=== PATIENT | male | born 1955 | race Caucasian/White ===

== ENCOUNTER 2017-01-21 12:17 | Inpatient (IN) | payer MEDICARE, OTHER ==
[~2017-01-21] VITALS: Ht 170.2 cm; Wt 80.3 kg
--- NOTE | 2017-01-21 12:28 | NUR ---
robi from [facility] due to generalized weakness and failure to thrive. Patient is awake, however patient is non verbal and is unable to follow commands. No sob, no evidence of pain or discomfort. Skin is warm to touch and non diaphoretic. Pt is afebrile. Vss.Gowned pt and placed on tele monitor., Pending md reis
[2017-01-21] MEDS ORDERED: IV NS 0.9% 1,000 ML BAG IV ONE (12:30)
[2017-01-21] MEDS ORDERED: IV SET PRIMARY 1 EA INFUS.SET MC ONE (12:36)
[2017-01-21] MEDS ORDERED: IV NS 0.9% 1,000 ML ONE (12:36)
[2017-01-21 12:44] LABS: BASOPHILS # (AUTO) 0.1 /CMM (0.0-0.2); BASOPHILS % (AUTO) 0.8 % (0.0-2.0); EOSINOPHILS # (AUTO) 3.1 /CMM (0.0-0.7); HEMATOCRIT 41 % (39-51); HEMOGLOBIN 13.6 g/dL (13.5-17.5); LYMPHOCYTES # (AUTO) 2.5 /CMM (0.8-4.8); LYMPHOCYTES % (AUTO) 21.8 % (20.0-44.0); MEAN CORPUSCULAR HEMOGLOBIN 30 PG (26.0-33.0); MEAN CORPUSCULAR HGB CONC 33 g/dl (31.0-36.0); MEAN CORPUSCULAR VOLUME 91 fL (80-96); MONOCYTES # (AUTO) 0.9 /CMM (0.1-1.30); NEUTROPHILS # (AUTO) 4.9 /CMM (1.8-8.9); NEUTROPHILS % (AUTO) 42.8 % (43.0-81.0); PLATELET COUNT (AUTO) 247 /CMM (150-450); RDW COEFFICIENT OF VARIATION 12.7 (11.5-15.0); RED BLOOD CELL COUNT(AUTO) 4.49 MIL/uL (4.5-6.0); WHITE BLOOD COUNT (AUTO) 11.5 K/uL (4.3-11.0)
--- NOTE | 2017-01-21 12:46 | NUR ---
[employer] at bs
[2017-01-21 12:49] LABS: EOSINOPHILS % (AUTO) 26.6 % (0.0-6.0)
[2017-01-21 12:59] LABS: INR 1.05 (0.87-1.13); PROTHROMBIN TIME 10.9 SECS (9.5-12.7)
[2017-01-21 13:01] LABS: ALANINE AMINOTRANSFERASE 9 U/L (12-78); ALBUMIN 2.7 g/dL (3.4-5.0); ALKALINE PHOSPHATASE 118 U/L (46-116); ASPARTATE AMINOTRANSFERASE 14 U/L (15-37); BILIRUBIN,DIRECT 0.1 mg/dL (0.0-0.2); BILIRUBIN,TOTAL 0.4 mg/dL (0.2-1.0); CALCIUM, SERUM 8.8 mg/dL (8.5-10.1); CARBON DIOXIDE 30 mmol/L (21-32); CHLORIDE 107 mmol/L (98-107); CREATININE 0.9 mg/dL (0.6-1.3); GLUCOSE 103 mg/dL (74-106); SODIUM SERUM 141 mmol/L (136-145); TOTAL PROTEIN, SERUM 7.6 g/dL (6.4-8.2)
[2017-01-21 13:02] LABS: SALICYLATE 1.1 mg/dL (2.8-20.0)
[2017-01-21 13:04] LABS: TROPONIN I < 0.017 ng/mL (0.00-0.056)
[2017-01-21 13:07] LABS: UREA NITROGEN, BLOOD 9 mg/dL (7-18)
[2017-01-21] MEDS ORDERED: ADAL40PE SQ (13:08)
[2017-01-21] MEDS ORDERED: RANI150T8 PO (13:08)
[2017-01-21] MEDS ORDERED: TEMA30CA PO (13:08)
[2017-01-21] MEDS ORDERED: RISP2TAB5 PO (13:08)
[2017-01-21] MEDS ORDERED: HYDR-3026 PO (13:08)
[2017-01-21] MEDS ORDERED: ROPI0.5T PO (13:08)
[2017-01-21] MEDS ORDERED: CARV3.122 PO (13:08)
[2017-01-21] MEDS ORDERED: SERT25TA PO (13:08)
[2017-01-21] MEDS ORDERED: CODE118S2 PO (13:08)
[2017-01-21] MEDS ORDERED: DOCU-170 PO (13:08)
[2017-01-21] MEDS ORDERED: ASPI81TA2 PO (13:08)
[2017-01-21 13:28] LABS: THYROID STIMULATING HORMONE 2.054 uIU/mL (0.358-3.74)
[2017-01-21 13:40] LABS: SERUM AMMONIA 14 umol/L (11-32)
--- NOTE | 2017-01-21 13:41 | NUR ---
pt was taken to ct
--- NOTE | 2017-01-21 13:52 | NUR ---
pt told nurses to come back at @1400 for urine sample
[2017-01-21 14:06] LABS: BAND % (MANUAL) 3 % (0.0-5.0); EOSINOPHILS % (MANUAL) 27 % (0-4); LYMPHOCYTES % (MANUAL) 22 % (16-48); MONOCYTES % (MANUAL) 11 % (0-11.0); NEUTROPHILS % (MANUAL) 37 (42-76)
--- NOTE | 2017-01-21 14:12 | NUR ---
PAGED DR LEMON FOR CALL BACK
--- NOTE | 2017-01-21 14:38 | NUR ---
CALLED NURSING DRY KILN FEEDER FOR M/S BED
[2017-01-21 14:57] LABS: APPEARANCE,URINE Clear (CLEAR); BILIRUBIN,URINE Negative (NEGATIVE); BLOOD, URINE Moderate Ery/uL (NEGATIVE); COLOR,URINE Dark (YELLOW); KETONES,URINE Negative (NEGATIVE); LEUKOCYTE ESTERASE ,URINE Negative (NEGATIVE); NITRITE, URINE Negative (NEGATIVE); PROTEIN,URINE Negative (NEGATIVE); UGLUCOSE Negative (NEGATIVE)
[2017-01-21 15:06] LABS: BACTERIA,URINE None seen /HPF (None Seen); SQUAMOUS EPITHELIAL CELL,UR Rare /HPF (None Seen)
[2017-01-21 15:07] LABS: MUCUS,URINE Few /LPF (None Seen)
--- NOTE | 2017-01-21 16:51 | NUR ---
report given to floor nurse for continuity of care
--- NOTE | 2017-01-21 17:15 | NUR ---
pt trasnported to 3w. vss
[2017-01-21 17:30] VITALS: BP_SYST 119; BP_DIAS 73; BP_DIAS 80
--- NOTE | 2017-01-21 17:30 | NUR ---
RN MS NOTES RECEIVED PT FROM E.R. STAFF VIA [facility], ASSISTED TO BED, MADE COMFORTABLE, PT IS AWAKE, ALERT, NON VERBAL, COMMUNICATES THROUGH WRITING, NO COMPLAINT OF PAIN, NOT IN DISTRESS, ON ROOM AIR, VITALS WNL, ABLE TO AMBULATE WITH STEADY GAIT TO THE BATHROOM, ROOM SET UP ORIENTATION PROVIDED TO PT, EXPRESSED UNDERSTANDING, AWAITING ADMISSION ORDERS FROM MD.
--- NOTE | 2017-01-21 18:51 | NUR ---
RN MS NOTES PT IN BED, RESTING, NO COMPLAINT OF PAIN OR DISTRESS, SPOKE WITH JIN DREW DISTRICT MEDICAL EXAMINER, QUALITY SYSTEMS MANAGER FOR DR. LEMON, ADMITTING ORDERS RECEIVED, NOTED AND CARRIED OUT, KEPT PT COMFORTABLE, CALL LIGHT WITHIN REACH, PM CARE RENDERED.
--- NOTE | 2017-01-21 19:45 | NUR ---
MS ELIF INITIAL NOTES SEEN PT IN BED AWAKE AND ALERT , DEAF, COMMUNICATE DELORES WRITING. NO SIGNS OF ANY ACUTE DISTRESS NOTED. RE-ORIENTED WHERE HE AT AND HOW TO USED THE CALL LIGHT SYSTEM. SNACKS ALSO SERVED. DENIES ANY PAIN OR ANY DISCOMFORT. NOTED HE SOME RASHES ON HIS BODY . HE SCRATCHES IT ONCE IN A WHILE. KEPT HIM WARM AND COMFORTABLE AT ALL TIMES. PLACE CALL LIGHT AT REACH. WILL CONTINUE TO MONITOR. BED ALARM SET FOR SAFETY.PLACE CALL LIGHT AT REACH. WILL CONTINUE TO MONITOR.
[2017-01-21 20:00] VITALS: BP 115/67
[2017-01-21] MEDS ORDERED: TEMAZEPAM 15 MG CAPSULE PO PRN (20:30)
[2017-01-21] MEDS ORDERED: ADALIMUMAB SQ SCH (20:30)
[2017-01-21] MEDS ORDERED: hydrOXYzine PAMOATE 25 MG CAPSULE PO PRN (20:30)
[2017-01-21] MEDS: FAMOTIDINE (20 MG) 20 MG TABLET PO SCH (21:23)
[2017-01-21] MEDS: ropiniROLE 0.5 MG TABLET PO SCH (21:23)
[2017-01-21] MEDS: risperiDONE 1 MG TABLET PO SCH (21:24)
[2017-01-21] MEDS: CODEINE/PROMETHAZINE HCL 5 ML UDC PO PRN (21:28)
--- NOTE | 2017-01-21 22:00 | NUR ---
MS ELIF NOTES PHENERGAN 5ML GIVEN FOR PT TO RELIEVED ITCHY. ROUTINE MEDS ALSO ADMINISTERED. SNACKS ALSO SERVED. WILL CONTINUE TO MONITOR.
--- NOTE | 2017-01-22 | NUR ---
MS ELIF NOTES PT SLEEPING COMFORTABLY IN BED WITHOUT ANY ACUTE DISTRESS NOTED. KEPT HIM WARM AND COMFORTABLE AT ALL TIMES. WILL CONTINUE TO MONITOR. PLACE CALL LIGHT AT REACH.
[2017-01-22 06:15] LABS: BASOPHILS % (AUTO) 0.5 % (0.0-2.0); EOSINOPHILS # (AUTO) 1.7 /CMM (0.0-0.7); EOSINOPHILS % (AUTO) 18.9 % (0.0-6.0); HEMATOCRIT 39 % (39-51); HEMOGLOBIN 13.3 g/dL (13.5-17.5); LYMPHOCYTES # (AUTO) 2.1 /CMM (0.8-4.8); LYMPHOCYTES % (AUTO) 22.6 % (20.0-44.0); MEAN CORPUSCULAR HEMOGLOBIN 31 PG (26.0-33.0); MEAN CORPUSCULAR HGB CONC 34 g/dl (31.0-36.0); MEAN CORPUSCULAR VOLUME 92 fL (80-96); MONOCYTES # (AUTO) 0.6 /CMM (0.1-1.30); MONOCYTES % (AUTO) 6.6 % (2.0-12.0); NEUTROPHILS # (AUTO) 4.7 /CMM (1.8-8.9); NEUTROPHILS % (AUTO) 51.4 % (43.0-81.0); PLATELET COUNT (AUTO) 235 /CMM (150-450); RDW COEFFICIENT OF VARIATION 13.5 (11.5-15.0); RED BLOOD CELL COUNT(AUTO) 4.27 MIL/uL (4.5-6.0); WHITE BLOOD COUNT (AUTO) 9.2 K/uL (4.3-11.0)
[2017-01-22 06:30] LABS: CALCIUM, SERUM 8.4 mg/dL (8.5-10.1); CREATININE 0.7 mg/dL (0.6-1.3); POTASSIUM 3.7 mmol/L (3.5-5.1)
--- NOTE | 2017-01-22 07:05 | NUR ---
MS HOURLY SHIFT CLOSING NOTES PT REMAINS SLEEPING COMFORTABLY IN BED WITHOUT ANY ACUTE DISTRESS NOTED. SLEPT WELL AND STABLE DELORES THE NIGHT. ALL DUE MEDS GIVEN AND ALL NEEDS MET. KEPT HIM WARM AND COMFORTABLE AT ALL TIMES. PLACE CALL LIGHT AT REACH. WILL ENDORSE TO AM NURSE FOR CONTINUITY OF CARE.
--- NOTE | 2017-01-22 07:21 | NUR ---
MS RN OPENING NOTES PT RECEIVED AWAKE IN BED IN NO ACUTE SIGNS OF DISTRESS. ALERT , DEAF, COMMUNICATE DELORES WRITING. DENIES ANY PAIN OR DISCOMFORTS AT THIS TIME. IV ACCESS ON RAC INTACT AND PATENT. CALL LIGHT WITHIN REACH. BED ALARM IN PLACE. BED IN LOW POSITION AND LOCKED. SAFETY PRECAUTIONS MAINTAINED. WILL CONTINUE TO MONITOR ACCORDINGLY.
[2017-01-22 08:00] VITALS: BP 102/60
[2017-01-22] MEDS: FAMOTIDINE (20 MG) 20 MG TABLET PO SCH ×2 (08:22→22:06)
[2017-01-22] MEDS: risperiDONE 1 MG TABLET PO SCH ×2 (08:23→16:50)
[2017-01-22] MEDS: SERTRALINE HCL 25 MG TABLET PO SCH (08:23)
[2017-01-22] MEDS: ASPIRIN 81 MG TAB.CHEW PO SCH (08:24)
[2017-01-22] MEDS: CARVEDILOL 3.125 MG TABLET PO SCH ×2 (08:24→16:50)
[2017-01-22 08:28] LABS: EOSINOPHILS % (MANUAL) 9 % (0-4); LYMPHOCYTES % (MANUAL) 13 % (16-48); MONOCYTES % (MANUAL) 1 % (0-11.0); NEUTROPHILS % (MANUAL) 77 (42-76)
[2017-01-22] MEDS ORDERED: DOCUSATE SODIUM 100 MG CAPSULE PO SCH (09:00)
--- NOTE | 2017-01-22 11:51 | NUR ---
RN NOTES PATIENT WENT THIS MORNING FOR CT SCAN OF CHEST W/O CONTRAST TO RADIOLOGY VIA WHEELCHAIR. RESULTS STILL PENDING.
[2017-01-22 16:00] VITALS: BP 94/67
--- NOTE | 2017-01-22 18:14 | NUR ---
RN NOTES CALLED [facility] REGARDING PT'S HUMIRA INJ. SPOKE TO MARIN AND SAID THAT IT'S SUPPOSED TO BE GIVEN BY HOME HEALTH NURSE YESTERDAY BUT WASN'T GIVEN BECAUSE PT WAS TRANSFERRED TO HOSPITAL( HERE). MARIN CALLED HOME HEALTH CLINIC IF THEY CAN BRING THE HUMIRA HERE BUT THE CLINIC IS CLOSE ALREADY. MARIN WILL CALL HOME CLINIC TOMORROW MORNING AND WILL LET US KNOWN IF THEY CAN PROVIDE THE MEDICATION. ZAIDA OF PHARMACY INFORMED. WILL FOLLOW-UP TOMORROW.
--- NOTE | 2017-01-22 18:41 | NUR ---
MS RN CLOSING NOTES PT AWAKE AND RESTING @ MODERATE HIGH BACKREST IN BED. ALERT AND ORIENTED X1-2, DEAF, COMMUNICATE THROUGH WRITING AND GESTURES. DENIES ANY PAIN OR DISCOMFORTS THROUGHOUT THE DAY. ATE WELL DURING MEALTIMES. ALL NEEDS AND CARE PROVIDED WELL. IV ACCESS ON RAC INTACT AND PATENT. CALL LIGHT WITHIN REACH. BED ALARM IN PLACE. BED IN LOW POSITION AND LOCKED. SAFETY PRECAUTIONS MAINTAINED. ALL DUE MEDS GIVEN AND TOLERATED.WILL ENDORSED TO NURSE SUPERVISOR NURSE FOR STEVEN.
[2017-01-22 20:00] VITALS: BP 107/72
--- NOTE | 2017-01-22 20:00 | NUR ---
MS STORES ASSISTANT INITIAL NOTES RECEIVED PT IN BED RESTING WITH EYES CLOSED, NOT IN ANY ACUTE DISTRESS, RESPIRATION EVEN AND NON-LABORED, HEPLOCK PATENT AND INTACT. ABLE TO COMMUNICATE DELORES WRITING, DENIES ANY PAIN.RE-ORIENTED HIM WHERE HE AT AND HOW TO USED THE CALL LIGHT SYSTEM AND ENCOURAGE HIM TO USE IF HE NEEDS SOME HELP. KEPT HIM WARM AND COMFORTABLE AT ALL TIMES. PLACE CALL LIGHT AT REACH. WILL CONTINUE TO MONITOR.
[2017-01-22] MEDS: ATORVASTATIN 10 MG TABLET PO SCH (22:06)
[2017-01-22] MEDS: ropiniROLE 0.5 MG TABLET PO SCH (22:06)
[2017-01-22] MEDS: CODEINE/PROMETHAZINE HCL 5 ML UDC PO PRN (22:06)
--- NOTE | 2017-01-23 | NUR ---
MOUNTAIN GUIDE/NOTES PT SLEEPING COMFORTABLY IN BED WITHOUT ANY ACUTE DISTRESS NOTED. KEPT HIM WARM AND COMFORTABLE AT ALL TIMES. PLACE CALL LIGHT AT REACH.
--- NOTE | 2017-01-23 06:52 | NUR ---
CHILD DEVELOPMENT INSTRUCTOR CLOSING NOTES PT REMAINS SLEEPING AT THIS TIME BUT AROUSES TO TOUCH, NOT IN ANY DISCOMFORT. STABLE DELORES THE NIGHT AND SLEPT WELL. ALL DUE MEDS GIVEN AND ALL NEEDS MET. KEPT HIM WARM AND COMFORTABLE AT ALL TIMES. PLACE CALL LIGHT AT REACH. WILL ENDORSE TO AM NURSE FOR CONTINUITY OF CARE.
[2017-01-23 08:00] VITALS: BP 124/70
--- NOTE | 2017-01-23 08:00 | NUR ---
m/s traffic recorder: initial assessment received pt in bed awake, a/ox2-3; deaf, but able to make needs known by writing things. denies any pain and discomfort. reality orientation provided prn. instructed to call for assistance. pt able to ambulate without difficulty. will continue to monitor.
[2017-01-23] MEDS: ASPIRIN 81 MG TAB.CHEW PO SCH (08:37)
[2017-01-23] MEDS: risperiDONE 1 MG TABLET PO SCH ×2 (08:37→16:55)
[2017-01-23] MEDS: SERTRALINE HCL 25 MG TABLET PO SCH (08:37)
[2017-01-23] MEDS: FAMOTIDINE (20 MG) 20 MG TABLET PO SCH ×2 (08:38→21:00)
[2017-01-23] MEDS: CARVEDILOL 3.125 MG TABLET PO SCH ×2 (08:38→16:50)
--- NOTE | 2017-01-23 10:00 | NUR ---
m/s senior enlisted advisor: notes resting comfortable in bed with no distress noted. call light within reach. will monitor.
--- NOTE | 2017-01-23 13:30 | NUR ---
M/S HEALTHCARE EDUCATOR: MD VISIT SEEN AND EXAMINED BY DR. LEMON WITH ORDER TO D'C PT BACK TO [facility], CONTINUE HOME MEDS, AND NEED COLONOSCOPY OUTPATIENT. ORDER READ BACK AND CARRIED OUT AND ACKNOWLEDGED. CASE MANAGEMENT MADE AWARE.
--- NOTE | 2017-01-23 13:45 | NUR ---
m/s rn bsn: notes able to communicate with pt by writing and aware that he is going back to assisted living today and wrote it down including his room number there. asked by writing if we can take photos on his psoriasis, but said no in writing. pt has generalized psoriasis. will continue to monitor.
--- NOTE | 2017-01-23 15:10 | NUR ---
m/s landing man: notes f/u made to [place] (case management) and informed me that they are not taking ([facility]) the pt today, but will take him tomorrow for snf. pt made aware by writing it down and verbalized understanding.
[2017-01-23 16:00] VITALS: BP 102/59
--- NOTE | 2017-01-23 18:30 | NUR ---
m/s putty maker: notes resting comfortable in bed. needs attended. no apparent distress noted. instructed to call for assistance. will continue to monitor.
--- NOTE | 2017-01-23 19:10 | NUR ---
RN OPEN NOTES RECEIVED PATIENT AWAKE IN BED. A/O X2-3. PATIENT DEAF BUT ABLE TO COMMUNICATE THROUGH WRITING. NO SIGNS OF DISTRESS OR DISCOMFORT. BREATHING EVEN AND UNLABORED. IV ACCESS IN RAC, PATENT AND INTACT, NO SIGNS OF REDNESS OR INFILTRATION. BED IN LOW LOCKED POSITION WITH SIDE RAILS X2. CALL LIGHT WITHIN REACH. WILL CONTINUE TO MONITOR.
[2017-01-23 20:00] VITALS: BP 118/75
--- NOTE | 2017-01-23 21:40 | NUR ---
RN NOTES PATIENT REFUSED LIPITOR, REQUIP, AND PEPCID X3. PATIENT EDUCATION REINFORCED. WILL CONTINUE TO MONITOR.
[2017-01-23] MEDS: ropiniROLE 0.5 MG TABLET PO SCH (22:00)
[2017-01-23] MEDS: ATORVASTATIN 10 MG TABLET PO SCH (22:00)
--- NOTE | 2017-01-24 06:50 | NUR ---
RN CLOSING NOTES PATIENT RESTING IN BED. A/O X2-3. PATIENT DEAF BUT ABLE TO COMMUNICATE THROUGH WRITING. NO SIGNS OF DISTRESS OR DISCOMFORT. BREATHING EVEN AND UNLABORED. IV ACCESS IN RAC, PATENT AND INTACT, NO SIGNS OF REDNESS OR INFILTRATION. NO SIGNIFICANT CHANGES THROUGH THE NIGHT. ALL NEEDS MET. BED IN LOW LOCKED POSITION WITH SIDE RAILS X2. CALL LIGHT WITHIN REACH. WILL ENDORSE TO AM SHIFT FOR STEVEN.
--- NOTE | 2017-01-24 07:15 | NUR ---
RN INITIAL NOTES: REC'D PT AWAKE ON BED, NOT IN ANY DISTRESS. PT ON ROOM AIR, NO SOB NOTED. HAS R AC G20 SL, FLUSHED, PATENT & INTACT W/ NO SIGNS OF INFECTION/ INFILTRATION NOTED. PROVIDED COMFORT & SAFETY MEASURES. CALL LIGHT PLACED W/IN REACH. BED KEPT LOW & IN LOCKED POSITION. WILL CONTINUE TO MONITOR.
[2017-01-24 08:00] VITALS: BP 121/73
[2017-01-24] MEDS: ASPIRIN 81 MG TAB.CHEW PO SCH (08:26)
[2017-01-24] MEDS: risperiDONE 1 MG TABLET PO SCH (08:26)
[2017-01-24 08:27] VITALS: BP 121/73
[2017-01-24] MEDS: FAMOTIDINE (20 MG) 20 MG TABLET PO SCH (08:27)
[2017-01-24] MEDS: SERTRALINE HCL 25 MG TABLET PO SCH (08:27)
[2017-01-24] MEDS: CARVEDILOL 3.125 MG TABLET PO SCH (08:27)
--- NOTE | 2017-01-24 14:53 | NUR ---
LEAD SLOT TECHNICIAN NOTES: PT DC'D BACK TO [facility] ORDERED. REPORT WAS GIVEN TO TATI FERRARA. PT LEFT THE FACILITY IN STABLE CONDITION, NOT IN ANY DISTRESS, DENIES ANY PAIN/ DISCOMFORT. ALL BELONGINGS SENT W/ PT. WOUND PHOTOS TAKEN. IV ACCESS REMOVED, PRESSURE DRESSING APPLIED, NO SIGN OF INFECTION NOTED. ID BAND REMOVED. PT PICKED UP BY [facility] EMT [facility]IA [facility].
== END 2017-01-24 14:00 | DRG 641 ==
LOC: ER 12:21 → MED 16:43
PROVIDERS: ADMIT Internal Medicine; ATTEND Internal Medicine
DX: R62.7 Adult failure to thrive (principal); G25.9 Extrapyramidal and movement disorder, unspecified; H91.90 Unspecified hearing loss, unspecified ear; I10 Essential (primary) hypertension; K21.9 Gastro-esophageal reflux disease without esophagitis; Z86.73 Personal history of transient ischemic attack (TIA), and cerebral infarction without residual deficits; I25.10 Atherosclerotic heart disease of native coronary artery without angina pectoris; I25.2 Old myocardial infarction; D72.829 Elevated white blood cell count, unspecified; G25.81 Restless legs syndrome; F99 Mental disorder, not otherwise specified; R53.1 Weakness; Z72.0 Tobacco use; Z68.27 Body mass index [BMI] 27.0-27.9, adult; J43.9 Emphysema, unspecified; R26.9 Unspecified abnormalities of gait and mobility; G20 Parkinson's disease; G40.909 Epilepsy, unspecified, not intractable, without status epilepticus; N40.0 Benign prostatic hyperplasia without lower urinary tract symptoms; Z79.899 Other long term (current) drug therapy
CPT/HCPCS: 36415; 70450-TC; 71010-TC; 71250-TC; 80048-TC; 80076-TC; 81000-TC; 82140-TC; 84443-TC; 84484-TC; 85025-TC; 85730-TC; 87081-TC; A4606; G0480; J7030; Q0177; Z7610